=== PATIENT | female | born 1950 | race Caucasian/White ===

== ENCOUNTER → 2017-09-12 10:16 | Outpatient (CLI) | payer MEDICARE, OTHER ==
[2010-09-02 06:45] VITALS: BMI 34.8
== END | disposition home or self-care (01) ==
LOC: D.US 10:16
DX: I87.8 Other specified disorders of veins (principal); M79.605 Pain in left leg; M79.604 Pain in right leg

== ENCOUNTER 2017-11-02 08:23 | Day surgery (SDC) | payer MEDICARE, OTHER ==
[~2017-11-02] VITALS: Ht 157.5 cm; Wt 100.7 kg
--- NOTE | ~2017-11-02 | OP ---
PATIENT NAME: DINORA LEWIS MEDICAL RECORD: [id number] :48 LOCATION:D.OPS ADMISSION DATE: SURGEON: KIRILL WHITE MD DATE OF OPERATION: 11/02/2017 PREOPERATIVE DIAGNOSES: 1. 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 2. Pathologic greater saphenous venous reflux, right. 3. CEAP-4 venous insufficiency of the right lower extremity. POSTOPERATIVE DIAGNOSES: 1. 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 2. Pathologic greater saphenous venous reflux, right. 3. CEAP-4 venous insufficiency of the right lower extremity. PROCEDURES: 1. VNUS radiofrequency ablation of the right greater saphenous vein under ultrasonographic guidance. The total length of the greater saphenous vein treated was 61 cm and this was treated with 9 cycles. 2. Immediate surgeon interpretation of the ultrasonographic images. 3. Avulsion phlebectomies, right lower extremity times 42. SURGEON: Kirill White MD ENGINE LATHE SET UP OPERATOR: None. BLOOD LOSS. 100 cc. ANESTHESIA: General. COMPLICATIONS: None. The risks, possible complications and alternatives to procedure were explained to the patient. She elects to proceed. OPERATIVE COURSE: The patient was conveyed to the operating room electively on 11/02/2017. General anesthesia was induced by the anesthesia staff. The lemons that had been placed on the patient in the holding area over the varicose veins were still present. The patient was positioned in the reverse Trendelenburg position. Under ultrasonographic guidance, I percutaneously accessed the right greater saphenous vein. The guidewire passed easily. A dilator sheath was advanced. The dilator and wire were removed. Through the sheath, the radiofrequency catheter was advanced. The patient was positioned in the Trendelenburg position. Subcutaneous Lovenox was given. I advanced a radiofrequency catheter to the saphenofemoral junction. I then withdrew the radiofrequency catheter so that it was 2 cm within the greater saphenous vein, away from the saphenofemoral junction. Under ultrasonographic guidance, I injected a crystalloid solution into the perivenular tissues to act as a heat sink to prevent damage of surrounding tissues such as nervous tissues. I then activated the radiofrequency catheter twice. With each 7 cm pullback, it was activated again. The radiofrequency catheter was removed. Through the sheath, a dilute foamed sclerosant was injected and the sheath was then removed. The puncture site was closed with a single horizontal mattress 4-0 Vicryl Rapide suture. OPERATIVE REPORT [id number] DINORA LEWIS Through small skin nicks, avulsion phlebectomies were performed utilizing the phlebectomy hook. During the entire operation, there was no apparent nervous injury. The patient was then positioned prone. The right lower extremity was sterilely prepped and draped. I completed avulsion phlebectomies through small skin nicks. Again, there was no evidence of any nerve injury. Sterile dressings were applied. A pressure garment was then applied. The patient was then extubated and conveyed to the post-anesthesia care unit. She will be dismissed home on hydrocodone for pain. I will see her in the office on Tuesday for removal of the compression garment. TRANSINT:[id number] Voice Confirmation ID: [id number] DOCUMENT ID: [id number] KIRILL WHITE MD at 1042 CC: ISAIAS ESCAMILLA [id number] DICTATION DATE: 11/02/17 1537 OPTICAL EFFECTS LINE UP PERSON: 11/02/17 1618 [facility] 11/02/17 [id number] [place] [address]
[~2017-11-02 08:23] MED LIST: BIOTIN5 MG PO; FLUTICASONE PRO16 GM NASAL; MIRAPEX1 MG PO; MOBIC7.5 MG PO; MUCINEX1200 MG/BO PO; NATURE-THROID32.4 MG PO; PRESERVISION AR1 CAP PO; PRINIVIL20 MG PO; PROAIR HFA8.5 GM INH; PROTONIX40 MG PO; SINGULAIR10 MG PO; TOPROL XL25 MG PO; VITAMIN B-121000 MCG PO; ZYRTEC10 MG PO
[2017-11-02 09:36] VITALS: BP 145/91; Ht 157.5 cm; Wt 100.7 kg
[2017-11-02 10:07] LABS: HEMATOCRIT 38.5 % (36.0-48.0); HEMOGLOBIN 12.8 g/dL (12-16); MCH 27.5 pg (26.0-34.0); MCHC 33.2 g/dL (31.0-37.0); MCV 82.8 fL (80.0-100.0); MEAN PLATELET VOLUME 10.5 fL (7.4-10.4); RBC 4.65 10x6/uL (4.00-5.40); RDW 12.7 % (11.5-14.5); WBC 6.8 10x3/uL (4.8-10.8)
== END 2017-11-02 17:10 | disposition home or self-care (01) ==
LOC: D.OPS 08:23 → D.PAN 12:00 → D.OPS 17:10
PROVIDERS: Anesthesiology
DX: I83.891 Varicose veins of right lower extremity with other complications (principal); I87.2 Venous insufficiency (chronic) (peripheral); Z01.812 Encounter for preprocedural laboratory examination

== ENCOUNTER 2018-03-03 07:40 | Day surgery (SDC) | payer MEDICARE, OTHER ==
[~2018-03-03] VITALS: Ht 157.5 cm; Wt 100.2 kg
--- NOTE | ~2018-03-03 | OP ---
PATIENT NAME: DINORA LEWIS MEDICAL RECORD: [id number] :48 LOCATION:D.OPS ADMISSION DATE: SURGEON: KIRILL WHITE MD DATE OF OPERATION: 03/03/2018 PREOPERATIVE DIAGNOSIS: Venous insufficiency with CEAP-5 changes involving the right lower extremity. POSTOPERATIVE DIAGNOSIS: Venous insufficiency with CEAP-5 changes involving the right lower extremity. PROCEDURE: Ultrasound-guided foamed sclerotherapy of perforating veins of the right lower extremity. SURGEON: Kirill White MD PUBLIC RELATIONS SENIOR ASSOCIATE: None. BLOOD LOSS: Minimal. ANESTHESIA: IV sedation. The risks, possible complications, and alternatives to the procedure were explained to the patient. She elected to proceed. OPERATIVE COURSE: The patient was conveyed to the operating room electively on 03/03/2018. IV sedation was induced by the anesthesia staff. The right lower extremity was sterilely prepped and draped. Utilizing the real-time ultrasound, I interrogated the right lower extremity. I identified several perforating veins. Utilizing a foamed sclerosant, which was polidocanol, I injected these perforating veins under ultrasound guidance utilizing a 27-gauge needle. There was no significant extravasation of the sclerosant. Sterile dressings were applied. The patient was then conveyed back to the postanesthesia care unit. I will see her in the office in 2-3 weeks. TRANSINT:[id number] Voice Confirmation ID: [id number] DOCUMENT ID: [id number] KIRILL WHITE MD at 1240 CC: [id number] DICTATION DATE: 03/16/18 1154 NAILHEAD OPERATOR: 03/16/18 1340 [facility] 03/03/[address] [address]
[~2018-03-03 07:40] MED LIST changes: +ACETAMINOPHEN500 M1 PO; +ALDACTONE25 MG PO; +LOVAZA1 G PO; +TOPROL XL50 MG PO; +VITAMIN D31000 UNIT PO; +VITAMIN E400 UNI2 PO; +VOLTAREN100 GM TOPICAL
[2018-03-03 08:05] LABS: HEMATOCRIT 39.6 % (36.0-48.0); HEMOGLOBIN 13.3 g/dL (12-16); MCH 27.2 pg (26.0-34.0); MCHC 33.6 g/dL (31.0-37.0); MEAN PLATELET VOLUME 10.8 fL (7.4-10.4); RBC 4.89 10x6/uL (4.00-5.40); RDW 13.2 % (11.5-14.5); WBC 7.1 10x3/uL (4.8-10.8)
[2018-03-03 09:24] VITALS: Ht 157.5 cm; Wt 100.2 kg
== END 2018-03-03 14:30 | disposition home or self-care (01) ==
LOC: D.OPS 07:40 → D.PAN 09:00 → D.OPS 09:45
PROVIDERS: Anesthesiology
DX: I87.2 Venous insufficiency (chronic) (peripheral) (principal); Z01.812 Encounter for preprocedural laboratory examination; I83.891 Varicose veins of right lower extremity with other complications

== ENCOUNTER → 2018-08-07 08:11 | Outpatient (CLI) | payer MEDICARE, OTHER ==
[2018-03-03 09:24] VITALS: BMI 40.5
== END | disposition home or self-care (01) ==
LOC: D.NM 08:00
DX: R10.9 Unspecified abdominal pain (principal); R11.0 Nausea

== ENCOUNTER → 2018-09-27 08:56 | Outpatient (CLI) | payer MEDICARE, OTHER ==
[2018-03-03 09:24] VITALS: BMI 40.5
== END | disposition home or self-care (01) ==
LOC: D.NM 08-21 08:00
DX: R10.9 Unspecified abdominal pain (principal); R11.2 Nausea with vomiting, unspecified

== ENCOUNTER 2019-07-20 07:21 | Day surgery (SDC) | payer MEDICARE, OTHER ==
[~2019-07-20] VITALS: Ht 157.5 cm; Wt 97.1 kg
[~2019-07-20 07:21] MED LIST changes: +CELEXA20 MG PO; +LISINOPRIL20 MG PO; +ULTRAM50 MG PO
[2019-07-20 07:40] LABS: HEMATOCRIT 38.3 % (36.0-48.0); HEMOGLOBIN 12.5 g/dL (12-16); MCH 27.5 pg (26.0-34.0); MCHC 32.6 g/dL (31.0-37.0); MCV 84.2 fL (80.0-100.0); MEAN PLATELET VOLUME 9.6 fL (7.4-10.4); RBC 4.55 10x6/uL (4.00-5.40); RDW 12.6 % (11.5-14.5); WBC 7.2 10x3/uL (4.8-10.8)
[2019-07-20 07:46] LABS: CALC OSMOLALITY 286 mosm/kg (275-300); CARBON DIOXIDE 32.3 mmol/L (21.0-32.0); CHLORIDE - SERUM 108 mmol/L (98-107); CREATININE - SERUM 0.7 mg/dL (0.6-1.3); GLUCOSE 107 mg/dL (74-106); POTASSIUM - SERUM 4.1 mmol/L (3.5-5.1); SODIUM 144 mmol/L (136-145); UREA NITROGEN 12 mg/dL (7-18); eGFR NON AFRICAN AMERICAN 88 mL/min (90-120)
[2019-07-20 09:16] VITALS: BP 153/77; Ht 157.5 cm; Wt 97.1 kg
--- NOTE | 2019-07-20 13:36 | NUR ---
PATIENT REPOSITIONED IN PRONE POSTION FOR SECOND STAGE OF SURGERY SECOND TIME OUT PERFORMED AT 1335 ALL STAFF IN AGREEMENT.
[2019-07-20] MEDS ORDERED: HYDROCODON-ACE1 EAC7 PO (17:09)
--- NOTE | 2019-08-06 13:56 | OP ---
PATIENT NAME: DINORA LEWIS MEDICAL RECORD: [id number] :48 LOCATION:D.OPS ADMISSION DATE: SURGEON: KIRILL WHITE MD DATE OF OPERATION: 07/20/2019 PREOPERATIVE DIAGNOSES: 1. CEAP-4 venous insufficiency involving the right lower extremity. 2. CEAP- 3 venous insufficiency regarding left lower extremity. 3. Bilateral lower extremities symptomatic varicosities. POSTOPERATIVE DIAGNOSES: 1. CEAP-4 venous insufficiency involving the right lower extremity. 2. CEAP-3 venous insufficiency regarding left lower extremity. 3. Bilateral lower extremities symptomatic varicosities. PROCEDURES: 1. Avulsion phlebectomies of 6 symptomatic varicosities of the bilateral lower extremities. 2. Ultrasound-guided foam sclerotherapy of perforating veins in areas of venous insufficiency between the knee and the ankle. SURGEON: Kirill White MD BIOMEDICAL ANALYTICAL SCIENTIST: None. BLOOD LOSS: Minimal. COMPLICATIONS: None. The patient was seen in the holding area. In the presence of a female nurse the varicosities were marked. The patient was conveyed to the operating room electively on 07/20/2019. General anesthesia was induced by anesthesia staff. Both lower extremities were sterilely prepped and draped. I used a foamed sclerosant through a 27-gauge needle and under ultrasonographic guidance, I accessed the perforating veins in areas of cellulitis and venous insufficiency. At no time was there any apparent significant extravasation of the foamed sclerosant. Through small skin nicks, avulsion phlebectomies were performed with a phlebectomy hook. At no time was there any apparent nerve injury. Both lower extremities were then wrapped in 4 x 4s and then Cob[place], which was belveled at the top and at the bottom. The patient was then extubated and conveyed to post-anesthesia care unit where she was in stable condition. I will see her in the office in 3 weeks. We will plan for removal of the lower extremity garments and replacement with compression hose when we see her in the office in 3 days. TRANSINT:[id number] Voice Confirmation ID: [id number] DOCUMENT ID: [id number] KIRILL WHITE MD at 1356 CC: [id number] DICTATION DATE: 08/03/191812 WATERWORKS CHIEF ENGINEER: 08/04/19 0423 [facility] 07/20/19 [facility] [address] [place] [address]
== END 2019-07-20 17:10 | disposition home or self-care (01) ==
LOC: D.OPS 07:21 → D.PAN 09:45 → D.OPS 17:10
PROVIDERS: Anesthesiology; ATTEND Surgery
DX: I83.813 Varicose veins of bilateral lower extremities with pain (principal); I87.2 Venous insufficiency (chronic) (peripheral); I10 Essential (primary) hypertension; J45.909 Unspecified asthma, uncomplicated